=== PATIENT | female | born 1990 ===

== ENCOUNTER 2023-04-13 19:09 | Emergency (ER) | payer OTHER, SELFPAY ==
--- NOTE | ~2023-04-13 | CT_ITS ---
EXAMINATION: CT ABDOMEN AND PELVIS WITH CONTRAST CLINICAL INFORMATION: Diarrhea, fever, abdominal pain COMPARISON: None available. TECHNIQUE: Multidetector volumetric images were obtained from the superior aspect of the liver through the pubic symphysis following administration 85 mL of Omnipaque 350 intravenous contrast. Sagittal and coronal reformatted images were obtained on the technologist's workstation. Oral contrast: No This CT examination was performed using dose optimization techniques as appropriate, variously including the following: *Automated exposure control *Adjustment of mA and/or kV according to patient size (this includes techniques or standardized protocols for targeted exams where dose is matched to indication/reason for exam; i.e. extremities or head) *Use of iterative reconstruction technique DLP: 750 mGy-cm FINDINGS: LUNG BASES: There is an area of coarse calcification and increased soft tissue density in the subareolar region of the left breast. Correlate with physical exam. The visualized lung bases are unremarkable. LIVER, GALLBLADDER, AND BILIARY TREE: The liver is enlarged measuring about 19 cm in greatest length. Difficult to trial judge attenuation after IV contrast. No focal hepatic lesion or biliary ductal dilatation is present. The gallbladder is unremarkable with no evidence of radiopaque gallstones, gallbladder wall thickening, or obvious pericholecystic inflammatory changes. PANCREAS: Unremarkable. SPLEEN: Spleen is enlarged at 13.8 cm. There is a tiny subcentimeter cysts seen posteriorly (8:41). A small splenule is present ADRENAL GLANDS: Unremarkable. KIDNEYS AND URETERS: The kidneys are normal in size, shape, and attenuation. No hydronephrosis, hydroureter, or calculi seen. No perinephric stranding. BLADDER: Unremarkable. GASTROINTESTINAL TRACT: The small and large bowel are unremarkable aside from colonic diverticula without diverticulitis. The appendix is unremarkable. ABDOMINAL WALL: No significant hernia is appreciated. LYMPH NODES: Multiple small lymph nodes are present in the retroperitoneum as well as the mesentery, the largest is a right paracaval node measuring 3.0 x 1.6 x 0.6 cm (3:47 and 7:44) VASCULAR: Unremarkable. PELVIC VISCERA: Retroverted uterus is present. An abnormal adnexal masses not seen. In the region of the cervix, there is a hypoattenuating area which could be related to nabothian cysts. OSSEOUS STRUCTURES: Unremarkable. CT/CT abdomen pelvis w IV con IMPRESSION: 1. Hepatosplenomegaly. 2. Colonic diverticulosis without diverticulitis. 3. Small retroperitoneal and mesenteric lymph nodes. 4. Other incidental findings as described above. Fleischner guidelines were followed.
[2023-04-13 19:57] VITALS: BP 115/69; PULSE 74; RESP 18; TEMP 36.7; O2SAT 97; BMI 29.5
--- NOTE | 2023-04-13 19:57 | ED_ITS ---
HPI - Nausea/Vomiting/Diarrhea General Chief complaint: Nausea/Vomiting/Diarrhea Stated complaint: Fever N/V/D Time Seen by Provider: 04/13/23 23:21 Source: patient Mode of arrival: ambulatory Limitations: no limitations History of Present Illness HPI Narrative: 33 yo female with no PMH here with c/o 7 days of abdominal pain n/v/d it all started after her menses. She had subjective fevers as well. She has never had a bad menses in the past and no prior endometriosis. Her sister has endometriosis and hx of colitis in the past. Patient denies travel, sick contacts, food exposures or antibiotic use in 4 weeks. The patient reports she has never had this before her last stool was nonbloody before arrival. She has never had abdominal surgery before. MD elicited complaint: nausea, vomiting, diarrhea and abdominal pain Onset (ago): day(s) (7) Description of vomiting: food contents and watery Description of diarrhea: watery Associated nausea: Yes Associated abdominal pain: Yes Location of pain: diffuse Radiation: diffuse Pain consistency: intermittent Severity: moderate Quality: cramping Exacerbating factors: eating Relieving factors: none Associated symptoms: fever/chills, loss of appetite, malaise and nausea/vomiting Related Data Previous Rx's Medication Instructions Recorded ondansetron 4 mg disintegrating 4 mg PO Q8H PRN nausea and 04/14/23 tablet vomiting #20 tabs Allergies Allergy/AdvReac Type Severity Reaction Status Date / Time No Known Allergies Allergy Verified 04/13/23 20:00 Review of Systems Review of Systems: Constitutional : No Weight loss, pos Fever, No Chills ENT/Mouth : No sore throat, No Rhinorrhea Eyes: No Swelling, No Redness Cardiovascular : No Chest Pain, No SOB, NoEdema Respiratory : No Cough, No Sputum, No Wheezing Gastrointestinal : Positive Nausea, Positive Vomiting, positive Diarrhea, positive abdominal Pain, No Hematochezia, No Melena Genitourinary : No Dysuria, No Urinary Frequency, No Hematuria, No Urgency Musculoskeletal : No joint pain, No Myalgias, No Joint Swelling Skin : No Skin Lesions, No rash Neuro : No Weakness, No Numbness, No Dizziness, No Headache Psych : No Anxiety/Panic, No Depression All other systems reviewed and are negative. Gastrointestinal: Gastrointestinal: Reports nausea PMFSH Past Medical History Attestation statement: The following information was validated with the patient. Medical History No pertinent past medical history Social History Social History (Updated 04/14/23 @ 00:33 by Dalila Jackson DO) Patient Tobacco Use Status: Never used Tobacco Advance Directives: No Advance Directives Information Provided: No Physical Exam Vital Signs: Vital Signs: Last Vital Signs Temp 98.1 F 04/13/23 19:57 Pulse 74 04/13/23 19:57 Resp 18 04/13/23 19:57 BP 115/69 04/13/23 19:57 Pulse Ox 97 04/13/23 19:57 O2 Del Method Room Air 04/13/23 19:57 BMI result Body Mass Index 29.5 Appearance: Alert. Oriented X3. No acute distress. Eyes: Pupils equal, round and reactive to light. ENT: Pharynx normal. Neck: Normal inspection. Neck supple. CVS: Normal heart rate and rhythm. Pulses normal. Respiratory: No respiratory distress. Breath sounds normal. Abdomen: Soft and mild diffuse ttp Skin: Skin warm and dry. Normal skin color. Normal skin turgor. Extremities: No lower extremity edema. No calf ttp Neuro: Oriented X 3. No motor deficit. No sensory deficit. Course Course Course Narrative: RME - 33 yo female presents to the ER for evaluation of watery diarrhea, nausea, vomiting, diffuse abdominal pain, and fevers for the last 1 week. No known sick contacts. Reports dizziness and lightheadedness for the last 2-3 days as well. Plan: labs, UA, stool studies Medications Administered Discontinued Medications Generic Name Dose Route Start Last Admin Trade Name Sebastian PRN Reason Stop Dose Admin Famotidine 20 mg 04/13/23 23:46 04/14/23 00:09 Famotidine/Pf 20 Mg/2 Ml Vial IVPUSH 04/13/23 23:47 20 mg ONCE ONE Administration Lactated Ringer's 1,000 mls @ 999 mls/hr 04/13/23 23:45 04/14/23 01:27 Lr IV 04/14/23 00:45 Infused .Q1H1M NHI Infusion Iohexol 85 ml 04/14/23 00:36 04/14/23 00:37 Iohexol 350 Mg/Ml 100 Ml Infus..Btl IV 04/14/23 00:37 85 ml ONCE ONE Administration Ketorolac Tromethamine 15 mg 04/13/23 23:46 04/14/23 00:09 Ketorolac Tromethamine 15 Mg/Ml Vial IVPUSH 04/13/23 23:47 15 mg ONCE ONE Administration Ondansetron HCl 4 mg 04/13/23 23:46 04/14/23 00:09 Ondansetron Hcl 4 Mg/2 Ml Vial IVPUSH 04/13/23 23:47 4 mg ONCE ONE Administration Medical Decision Making Medical Decision Making MDM Narrative: 33 yo female with no sig PMH here with c/o n/v/d and abdominal pain at this time has had fevers cramping but no risk factors for colitis - she will need basic labs, UA, CT scan for colitis/diverticulitis. has fam hx of endometriosis but will need to see OBGYN for this. IVF, IV medications ordered. Differential Diagnosis Differential Diagnoses: The differential diagnosis associated with the presentation includes colitis, viral syndrome, UTI, diverticulitis Admission/Observation Consideration of admission/observation: Escalation of care including admission/observation considered tolerating PO stable for outpatient management Lab Data [facility] Lab Attestation statement: I reviewed the patient's lab results. 04/13/23 21:04 04/13/23 21:03 Labs: Lab Results 04/13/23 04/13/23 04/13/23 Range/Units 21:03 21:03 21:04 WBC 6.8 (4.8-10.8) X10*3/uL RBC 4.74 (4.20-5.50) X10*6/uL Hgb 14.0 (12.0-16.0) g/dl Hct 40.9 (37.0-47.0) % MCV 86.3 (80.0-98.0) fL MCH 29.5 (27.0-33.0) pg MCHC 34.2 (31.0-35.0) g/dl RDW 12.0 (11.0-16.0) % Plt Count 332 (160-400) X10*3/uL MPV 9.7 (9.4-12.3) fL Immature Gran % (Auto) 0.3 (0.0-0.4) % Neut % (Auto) 57.2 (45-73) % Lymph % (Auto) 27.4 (20-40) % [place] % (Auto) 13.4 H (2-11) % Eos % (Auto) 1.3 (0-4) % Baso % (Auto) 0.4 (0-2) % Lymph # (Auto) 1.9 (1.2-4.9) X10*3/uL [place] # (Auto) 0.9 (0.1-1.2) X10*3/uL Eos # (Auto) 0.1 (0.0-0.4) X10*3/uL Baso # (Auto) 0.0 (0.0-0.2) X10*3/uL Abs Immat Gran (auto) 0.02 (0.00-0.03) X10*3/uL Absolute Neuts (auto) 3.9 (2.0-8.3) x10*3/uL Absolute Nucleated RBC 0.000 (0.0-0.012) X10*3/uL Nucleated RBC % (auto) 0.0 (0.0-0.2) /100WBC Sodium 142 (135-145) mmol/L Potassium 3.5 (3.3-5.1) mmol/L Chloride 104 (96-108) mmol/L Carbon Dioxide 29 (22-29) mmol/L Anion Gap 13 (12-20) BUN 11 (9-16) mg/dL Creatinine 0.63 (0.5-1.4) mg/dL Estim Creat Clear Calc 151.0 Estimated GFR > 60 Random Glucose 95 (60-115) mg/dL Calcium 9.1 (8.4-10.2) mg/dL Magnesium 2.1 (1.6-2.6) mg/dL Total Bilirubin 0.3 (0.0-1.0) mg/dL Direct Bilirubin 0.2 (0.0-0.5) mg/dL AST 70 H (5-31) U/L ALT 83 H (0-31) U/L Alkaline Phosphatase 57 (39-117) U/L Total Protein 6.8 (6.5-8.0) g/dL Albumin 4.0 (3.5-5.0) g/dL Urine Color Dark Yellow Urine Appearance Cloudy Urine pH 6.0 (5.0-9.0) Ur Specific [place] >= 1.030 H (1.005-1.025) Urine Protein 30 (1+) H (Neg-Trace) mg/dL Urine Glucose (UA) Negative (Negative) mg/dL Urine Ketones Trace (Negative) mg/dL Urine Blood Negative (Negative) Urine Nitrite Negative (Negative) Ur Leukocyte Esterase Trace H (Negative) Urine RBC 6-10 H (0-2) /HPF Urine WBC 0-5 (0-5) /HPF Ur Squamous Epith Cells >20 (0-2) /HPF Urine Bacteria 2+ (None Seen) Hyaline Casts 3-5 (0-2) /LPF Urine Test (NEGATIVE) COVID-19 (LADARIUS) (Negative) COVID-19 Clin Com Monoscreen (Negative) Influenza Type A (GLEN) (Negative) Influenza Type B (GLEN) (Negative) Influenza A & B Note 04/13/23 04/13/23 04/13/23 Range/Units 21:04 21:04 21:04 WBC (4.8-10.8) X10*3/uL RBC (4.20-5.50) X10*6/uL Hgb (12.0-16.0) g/dl Hct (37.0-47.0) % MCV (80.0-98.0) fL MCH (27.0-33.0) pg MCHC (31.0-35.0) g/dl RDW (11.0-16.0) % Plt Count (160-400) X10*3/uL MPV (9.4-12.3) fL Immature Gran % (Auto) (0.0-0.4) % Neut % (Auto) (45-73) % Lymph % (Auto) (20-40) % [place] % (Auto) (2-11) % Eos % (Auto) (0-4) % Baso % (Auto) (0-2) % Lymph # (Auto) (1.2-4.9) X10*3/uL [place] # (Auto) (0.1-1.2) X10*3/uL Eos # (Auto) (0.0-0.4) X10*3/uL Baso # (Auto) (0.0-0.2) X10*3/uL Abs Immat Gran (auto) (0.00-0.03) X10*3/uL Absolute Neuts (auto) (2.0-8.3) x10*3/uL Absolute Nucleated RBC (0.0-0.012) X10*3/uL Nucleated RBC % (auto) (0.0-0.2) /100WBC Sodium (135-145) mmol/L Potassium (3.3-5.1) mmol/L Chloride (96-108) mmol/L Carbon Dioxide (22-29) mmol/L Anion Gap (12-20) BUN (9-16) mg/dL Creatinine (0.5-1.4) mg/dL Estim Creat Clear Calc Estimated GFR Random Glucose (60-115) mg/dL Calcium (8.4-10.2) mg/dL Magnesium (1.6-2.6) mg/dL Total Bilirubin (0.0-1.0) mg/dL Direct Bilirubin (0.0-0.5) mg/dL AST (5-31) U/L ALT (0-31) U/L Alkaline Phosphatase (39-117) U/L Total Protein (6.5-8.0) g/dL Albumin (3.5-5.0) g/dL Urine Color Urine Appearance Urine pH (5.0-9.0) Ur Specific [place] (1.005-1.025) Urine Protein (Neg-Trace) mg/dL Urine Glucose (UA) (Negative) mg/dL Urine Ketones (Negative) mg/dL Urine Blood (Negative) Urine Nitrite (Negative) Ur Leukocyte Esterase (Negative) Urine RBC (0-2) /HPF Urine WBC (0-5) /HPF Ur Squamous Epith Cells (0-2) /HPF Urine Bacteria (None Seen) Hyaline Casts (0-2) /LPF Urine Test NEGATIVE (NEGATIVE) COVID-19 (LADARIUS) Negative (Negative) COVID-19 Clin Com See Note Monoscreen (Negative) Influenza Type A (GLEN) Negative (Negative) Influenza Type B (GLEN) Negative (Negative) Influenza A & B Note See Note 04/14/23 Range/Units 01:20 WBC (4.8-10.8) X10*3/uL RBC (4.20-5.50) X10*6/uL Hgb (12.0-16.0) g/dl Hct (37.0-47.0) % MCV (80.0-98.0) fL MCH (27.0-33.0) pg MCHC (31.0-35.0) g/dl RDW (11.0-16.0) % Plt Count (160-400) X10*3/uL MPV (9.4-12.3) fL Immature Gran % (Auto) (0.0-0.4) % Neut % (Auto) (45-73) % Lymph % (Auto) (20-40) % [place] % (Auto) (2-11) % Eos % (Auto) (0-4) % Baso % (Auto) (0-2) % Lymph # (Auto) (1.2-4.9) X10*3/uL [place] # (Auto) (0.1-1.2) X10*3/uL Eos # (Auto) (0.0-0.4) X10*3/uL Baso # (Auto) (0.0-0.2) X10*3/uL Abs Immat Gran (auto) (0.00-0.03) X10*3/uL Absolute Neuts (auto) (2.0-8.3) x10*3/uL Absolute Nucleated RBC (0.0-0.012) X10*3/uL Nucleated RBC % (auto) (0.0-0.2) /100WBC Sodium (135-145) mmol/L Potassium (3.3-5.1) mmol/L Chloride (96-108) mmol/L Carbon Dioxide (22-29) mmol/L Anion Gap (12-20) BUN (9-16) mg/dL Creatinine (0.5-1.4) mg/dL Estim Creat Clear Calc Estimated GFR Random Glucose (60-115) mg/dL Calcium (8.4-10.2) mg/dL Magnesium (1.6-2.6) mg/dL Total Bilirubin (0.0-1.0) mg/dL Direct Bilirubin (0.0-0.5) mg/dL AST (5-31) U/L ALT (0-31) U/L Alkaline Phosphatase (39-117) U/L Total Protein (6.5-8.0) g/dL Albumin (3.5-5.0) g/dL Urine Color Urine Appearance Urine pH (5.0-9.0) Ur Specific [place] (1.005-1.025) Urine Protein (Neg-Trace) mg/dL Urine Glucose (UA) (Negative) mg/dL Urine Ketones (Negative) mg/dL Urine Blood (Negative) Urine Nitrite (Negative) Ur Leukocyte Esterase (Negative) Urine RBC (0-2) /HPF Urine WBC (0-5) /HPF Ur Squamous Epith Cells (0-2) /HPF Urine Bacteria (None Seen) Hyaline Casts (0-2) /LPF Urine Test (NEGATIVE) COVID-19 (LADARIUS) (Negative) COVID-19 Clin Com Monoscreen Negative (Negative) Influenza Type A (GLEN) (Negative) Influenza Type B (GLEN) (Negative) Influenza A & B Note Independent Interpretation I performed an independent interpretation of an: CT Scan (no acute infection) Radiology Impression Discussion of test interpretation with radiology: I have reviewed the radiologist's reading. Prescription Management I considered prescription management with: Other (zofran) Discharge Plan Discharge Clinical Impression: Hepatosplenomegaly, LAD (lymphadenopathy), retroperitoneal Patient Disposition: Home, Self-Care Instructions: Lymphadenopathy (ED) Additional Instructions: mild bump in liver enzymes nonspecific enlarged lymph nodes could be reactive and mildly enlarged liver and spleen on CT scan. avoid alcohol and aspirin call your doctor to follow up CT scan results and repeat blood work in 2 days return for worsening fevers, pain, vomiting, worsening diarrhea or any other concerns, stay hydrated. Prescriptions: New ondansetron 4 mg tablet,disintegrating 4 mg PO Q8H PRN (Reason: nausea and vomiting) Qty: 20 0RF Interventions: ED Discharge Assessment Last Done: 04/14/23 01:26 Discharge Date/Time: 04/14/23 01:27
[2023-04-13 21:09] LABS: MANUAL DIFF FLAG NO
[2023-04-13 21:10] LABS: Basophils Percent Auto 0.4 % (0-2); Eosinophils Absolute Auto 0.1 X10*3/uL (0.0-0.4); Eosinophils Percent Auto 1.3 % (0-4); Hematocrit 40.9 % (37.0-47.0); Imm Gran Abs Auto 0.02 X10*3/uL (0.00-0.03); Imm Gran Pct Auto 0.3 % (0.0-0.4); Lymphocytes Absolute Auto 1.9 X10*3/uL (1.2-4.9); Lymphocytes Percent Auto 27.4 % (20-40); Mean Corpuscular HGB Conc 34.2 g/dl (31.0-35.0); Mean Corpuscular Hemoglobin 29.5 pg (27.0-33.0); Mean Corpuscular Volume 86.3 fL (80.0-98.0); Mean Platelet Volume 9.7 fL (9.4-12.3); Monocytes Absolute Auto 0.9 X10*3/uL (0.1-1.2); Monocytes Percent Auto 13.4 % (2-11); Neutrophils Absolute Auto 3.9 x10*3/uL (2.0-8.3); Neutrophils Percent Auto 57.2 % (45-73); Platelet Count 332 X10*3/uL (160-400); Red Blood Count 4.74 X10*6/uL (4.20-5.50); White Blood Count 6.8 X10*3/uL (4.8-10.8)
[2023-04-13 21:13] LABS: Appearance Urine Cloudy; Color Urine Dark Yellow; Glucose Urine UA Negative (Negative); Leukocyte Esterase Urine Trace (Negative); Nitrite Urine Negative (Negative); Specific Gravity - Urine >= 1.030 (1.005-1.025); UMIC TRIGGER UACC YES; Urine Blood Negative (Negative); Urine Ketones Trace mg/dL (Negative); Urine Protein 30 (1+) mg/dL (Neg-Trace)
[2023-04-13 21:14] LABS: UPreg QC Valid YES; Urine Pregnancy NEGATIVE (NEGATIVE)
[2023-04-13 21:20] LABS: Bacteria Urine 2+ (None Seen); Squamous Epithelial Cell Urine >20 /HPF (0-2); WBC Urine 0-5 /HPF (0-5)
[2023-04-13 21:23] LABS: COVID-19 Test Negative (Negative); IDNOW Serial# BCCEAD1C
[2023-04-13 21:24] LABS: IDNOW Serial# BCCEAD1C; Influenza A Negative (Negative); Influenza B2 Negative (Negative)
[2023-04-13 21:28] LABS: Alanine Aminotransferase 83 U/L (0-31); Alkaline Phosphatase 57 U/L (39-117); Anion Gap 13 (12-20); Aspartate Amino Transferase 70 U/L (5-31); Bilirubin Direct 0.2 mg/dL (0.0-0.5); Bilirubin Total 0.3 mg/dL (0.0-1.0); Blood Urea Nitrogen 11 mg/dL (9-16); Calcium 9.1 mg/dL (8.4-10.2); Carbon Dioxide 29 mmol/L (22-29); Chloride 104 mmol/L (96-108); Estimated Glomerular Filt Rate > 60; Glucose Random 95 mg/dL (60-115); Magnesium 2.1 mg/dL (1.6-2.6); Potassium 3.5 mmol/L (3.3-5.1); Sodium 142 mmol/L (135-145); Total Protein 6.8 g/dL (6.5-8.0)
--- OUTSIDE RECORDS SUMMARY | 2023-04-13 23:33 | XMS_ITS | Continuity of Care Document ---
Author Name Unknown Organization [facility] ter Address [address] [place] [address]- Care Team Providers Care Heel Brusher Name Role Phone Monica Grant MD Primary Care Physician [place] [facility] [place] - 09/25/[address] [address] Attending Physician: David Pierre DO Admitting Physician: David Pierre DO Allergies, Adverse Reactions, Alerts No Known Allergies Immunizations Given and Recorded Vaccine Date Status Refusal Reason Human Papillomavirus Vaccine 1 12/24/15 Given Human Papillomavirus Vaccine 2 10/25/15 Given 1Result Comment: [12/24/2015] Refused to wait 15min after injection to ensure no dizziness or other SE. States I'm always fine . No issues w/first. 2Result Comment: [10/25/2015] Refused to wait 15min post-injection, warnings reviewed. Medications Albuterol 0 Refills, Maintenance Start Date: 12/17/11 Status: Ordered Ambien 10 mg oral tablet 1 tablet = 10 mg, By Mouth, Daily at bedtime, PRN for sleep, 0 Refills, Maintenance, 01/06/17 9:02:59, Tablet Start Date: 01/06/17 Status: Ordered Flonase 50 mcg/inh nasal spray 1 sprays, Nares, Both, Daily in AM, # 1 each, 1 Refills, Maintenance, 03/12/17 17:22:12, [place], 1 sprays Nares, Both Daily in AM Start Date: 03/12/17 Status: Ordered Flovent HFA Inhalation, 2 times a day, 0 Refills, Maintenance, 06/14/14 12:45:19 Start Date: 06/14/14 Status: Ordered Prozac Capsule By Mouth, Daily, Maintenance, 10/25/15 14:25:35 Start Date: 10/25/15 Status: Ordered Problem List Condition Effective Dates Status Health Status Inform ant Abnormal cervical Papanicola ou smear(Confirmed) 1, 2, 3, 4, 5 11/2011 Active Asthma(Confirmed) Active Back pain(Confirmed) Active BRCA2 deleterious mutation positive(Confirmed) Active Breast lump present(Confirmed) Active Chronic depression(Confirmed) Active Migraines(Confirmed) Active PTSD - Post-traumatic stress disorder(Confirmed) Active Uses oral contraceptives(Confirmed) 06/2012 Active 1pap neg Oct 2015. no HPV done. pap neg/hpv neg. repeat pap/cotesting 1 yr. pap: ASCUS colpo c/w LGSIL, pap LGSIL, Bx negative 5ASCUS + HPV Social History Social History Type Response Smoking Status Former smoker, quit more than 30 days ago entered on: 07/14/18 Sex Female
--- OUTSIDE RECORDS SUMMARY | 2023-04-13 23:33 | XMS_ITS | Continuity of Care Document ---
Author Name Unknown Organization [facility] Address [address] [place] [address]- Care Team Providers Care Clinical Audiologist Name Role Phone Monica Grant MD Primary Care Physician Encounter [facility] Date(s): 01/19/22 - 02/18/22 [facility] [address] [place] [id number] Allergies, Adverse Reactions, Alerts No Known Allergies [...] Refills, Maintenance Start Date: 12/17/11 Status: Ordered Flonase 50 mcg/inh nasal spray 1 sprays, Nares, Both, Daily in AM, # 1 each, 1 Refills, Maintenance, 03/12/17 17:22:12, [place], 1 sprays Nares, Both Daily in AM [...] present(Confirmed) Active Chronic depression(Confirmed) Active Migraines(Confirmed) Active Obese class I(Confirmed) Active PTSD - Post-traumatic stress disorder(Confirmed) Active [...]
--- OUTSIDE RECORDS SUMMARY | 2023-04-13 23:33 | XMS_ITS | Continuity of Care Document ---
Author Name Unknown Organization [facility] Address [address] [facility] [place] [address]- Care Team Providers Care Clinical Case Manager Name Role Phone Rudy POWELL, Monica Primary Care Physician Encounter [facility] [place] Date(s): 08/14/21 - 09/13/21 [facility] [address] [place] [place] [address]- Attending Physician: Sugey Wade Admitting Physician: AdmtrSugey Referring Physician: Admtr, Ar8 Allergies, Adverse Reactions, Alerts Substance Reaction Severity Status NKA Active Immunizations Given and Recorded Vaccine Date Status [...] 1 each, 1 Refills, Maintenance, 03/12/17 17:22:12, [place], 1 sprays Nares, Both Daily in AM [...]
--- OUTSIDE RECORDS SUMMARY | 2023-04-13 23:33 | XMS_ITS | Continuity of Care Document ---
Author Name Unknown Organization [facility] Address [address] [place] [address]- Care Team Providers Care Freight Agent Name Role Phone Rudy POWELL, Monica Primary Care Physician [phone] [place] [facility] [place]11/20 - 05/11/20 [facility] [address] [place] [address] [facility] Allergies, Adverse Reactions, Alerts Substance Reaction Severity [...] 1 each, 1 Refills, Maintenance, 03/12/17 17:22:12, [place], 1 sprays Nares, Both Daily in AM [...]
--- OUTSIDE RECORDS SUMMARY | 2023-04-13 23:33 | XMS_ITS | Continuity of Care Document ---
Author Name Unknown Organization [facility] Address [address] [place] [address]- Care Team Providers Care Computer Technical Support Specialist Name Role Phone Monica Grant MD Primary Care Physician [place] [facility] [place] Date(s): 11/10/19 - 11/20/19 [facility] [address] [facility] [place] [address]- [facility] Attending Physician: Sugey Wade Admitting Physician: Sugey Wade Referring Physician: Admtr ArGregory Allergies, Adverse Reactions, Alerts Substance Reaction Severity [...] 1 each, 1 Refills, Maintenance, 03/12/17 17:22:12, [place], 1 sprays Nares, Both Daily in AM Start Date: 03/12/17 Status: Ordered Flovent HFA Inhalation, 2 times a day, 0 Refills, Maintenance, 10/09/14 12:45:19 Start Date: 06/14/14 Status: Ordered Prozac [...]
--- OUTSIDE RECORDS SUMMARY | 2023-04-13 23:33 | XMS_ITS | Continuity of Care Document ---
Author Name Unknown Organization [facility] jazmyn Address [address] [place] [address] [address] [place] [address]- Care Team Providers Care Back Shoe Cutter Name Role Phone Monica Grant MD Primary Care Physician En[place] [facility] [place] Date(s): 01/29/22 - 04/02/22 [facility] [address] [place], [place] [address] Attending Physician: Caryn POWELL, Eduin Mata Referring Physician: Monica Grant MD Allergies, Adverse Reactions, Alerts No Known Allergies [...] 1 each, 1 Refills, Maintenance, 03/12/17 17:22:12, [place], 1 sprays Nares, Both Daily in AM [...]
--- OUTSIDE RECORDS SUMMARY | 2023-04-13 23:33 | XMS_ITS | Continuity of Care Document ---
Author Name Unknown Organization [facility] Address [address] [place] [address]- Care Team Providers Care Composite Layup Worker Name Role Phone Monica Grant MD Primary Care Physician [place] [facility] [place]): [place]09/20 [facility] [address] [place] [address] [facility] Attending Physician: Sugey Wade Admitting Physician: Sugey Wade Referring Physician: AdmtrSugey Allergies, Adverse Reactions, Alerts Substance Reaction Severity [...] 1 each, 1 Refills, Maintenance, 03/12/17 17:22:12, [place], 1 sprays Nares, Both Daily in AM [...]
--- OUTSIDE RECORDS SUMMARY | 2023-04-13 23:33 | XMS_ITS | Continuity of Care Document ---
Author Name Unknown Organization [facility] Address [address] [place] [address]- Care Team Providers Care Operator Weapon Locating Radar Name Role Phone Monica Grant MD Primary Care Physician [phone] Encounter [facility] [id number] Date(s): 10/29/21 - 11/28/21 [facility] [address] [place] [id number] Attending Physician: Sugey Wade Admitting Physician: Sugey Wade Referring Physician: AdmtrSugey Allergies, Adverse Reactions, Alerts No Known Allergies [...] 1 each, 1 Refills, Maintenance, 03/12/17 17:22:12, [place], 1 sprays Nares, Both Daily in AM [...]
--- OUTSIDE RECORDS SUMMARY | 2023-04-13 23:33 | XMS_ITS | Continuity of Care Document ---
Author Name Unknown Organization [facility] jazmyn Address [address] [place] [address] [address] [place] [address]- Care Team Providers Care Head Stock Transfer Clerk Name Role Phone Monica Grant MD Primary Care Physician [place] [facility] [place] 03/03/22 - 04/02/22 [facility] [address] [place], [place] [address] Attending Physician: Sugey Wade Admitting Physician: AdmtrSugey Referring Physician: Admtr, Ar8 Allergies, Adverse Reactions, Alerts No Known Allergies [...] 1 each, 1 Refills, Maintenance, 03/12/17 17:22:12, [place], 1 sprays Nares, Both Daily in AM [...]
--- OUTSIDE RECORDS SUMMARY | 2023-04-13 23:34 | XMS_ITS | Continuity of Care Document ---
Author Name Unknown Organization [facility] Address [address] [place] [address]- Care Team Providers Care Manager Winter Name Role Phone Rudy POWELL, Monica Primary Care Physician [phone] [facility] [place] Date(s): 03/13/21 - 04/12/21 [facility] [address] [place] [address]- Attending Physician: AdmSugey savage Admitting Physician: AdmtrSugey Referring Physician: Admtr, Ar8 [...] 1 each, 1 Refills, Maintenance, 03/12/17 17:22:12, [place], 1 sprays Nares, Both Daily in AM Start Date: 03/12/17 Status: Ordered Flovent HFA Inhalation, 2 times a day, 0 Refills, Maintenance, 06/14/14 12:45:19 Start Date: 10/9/14 Status: Ordered Prozac Capsule By Mouth, Daily, [...]
--- OUTSIDE RECORDS SUMMARY | 2023-04-13 23:34 | XMS_ITS | Continuity of Care Document ---
Author Name Unknown Organization [facility] Address [address] [place] [address]- Care Team Providers Care Air Conditioner Installer Helper Name Role Phone Monica Grant MD Primary Care Physician [phone] [place] [facility] [place] 07/11/21 [facility] [address] [place] [address]- Attending Physician: David Pierre DO Admitting Physician: David Pierre DO Referring Physician: Monica Grant MD Allergies, Adverse Reactions, Alerts Substance Reaction Severity [...] 1 each, 1 Refills, Maintenance, 03/12/17 17:22:12, [place], 1 sprays Nares, Both Daily in AM [...]
--- OUTSIDE RECORDS SUMMARY | 2023-04-13 23:34 | XMS_ITS | Continuity of Care Document ---
Author Name Unknown Organization [facility] jazmyn Address [address] [place] [address] [address] [place] [address]- Care Team Providers Care Procurement Accountant Name Role Phone Monica Grant MD Primary Care Physician [phone] Encounter [facility] [place] Date(s): 06/19/21 - 08/28/21 [facility] [address] [place], [place] [address] Attending Physician: Uriel TERRY, Bernice Robertson Referring Physician: Monica Grant MD Allergies, Adverse [...] 1 each, 1 Refills, Maintenance, 03/12/17 17:22:12, [place], 1 sprays Nares, Both Daily in AM [...]
--- OUTSIDE RECORDS SUMMARY | 2023-04-13 23:34 | XMS_ITS | Continuity of Care Document ---
Author Name Unknown Organization [facility] ter Address [address] [place] [address]- Care Team Providers Care Rn Dialysis Name Role Phone Monica Grant MD Primary Care Physician [place] [facility] [place] Date(s[place] 11/15/19 - 12/30/[address] [address]- [facility] Attending Physician: Carmelo Silva Admitting Physician: Carmelo Silva Referring Physician: Carmelo Silva Allergies, Adverse Reactions, Alerts Substance Reaction Severity [...] 1 each, 1 Refills, Maintenance, 03/12/17 17:22:12, [place], 1 sprays Nares, Both Daily in AM [...]
--- OUTSIDE RECORDS SUMMARY | 2023-04-13 23:34 | XMS_ITS | Continuity of Care Document ---
Author Name Unknown Organization [facility] jazmyn Address [address] [place] [address] [address] [place] [address]- Care Team Providers Care Editor News Name Role Phone Monica Grant MD Primary Care Physician [place] [facility] [place]21 - 09/04/21 [facility] [address] [place], [place] [address] Attending Physician: Uriel TERRY, Bernice Robertson Referring [...] 1 each, 1 Refills, Maintenance, 03/12/17 17:22:12, [place], 1 sprays Nares, Both Daily in AM [...]
--- OUTSIDE RECORDS SUMMARY | 2023-04-13 23:34 | XMS_ITS | Continuity of Care Document ---
Author Name Unknown Organization [facility] jazmyn Address [address] [place] [address] [address] [place] [address]- Care Team Providers Care Photographic Plate Maker Name Role Phone Monica Grant MD Primary Care Physician Encounter [facility] [place] Date(s): 06/19/21 - 09/25/21 [facility] [address] [place], [place] [address] Attending Physician: Uriel TERRY, Bernice Robertson Referring [...] 1 each, 1 Refills, Maintenance, 03/12/17 17:22:12, [place], 1 sprays Nares, Both Daily in AM [...]
--- OUTSIDE RECORDS SUMMARY | 2023-04-13 23:34 | XMS_ITS | Continuity of Care Document ---
Author Name Unknown Organization [facility]astic [facility] jazmyn Address [address] [place] [address] [address] [place] [address]- Care Team Providers Care Polysom Tech Name Role Phone Monica Grant MD Primary Care Physician En[place] [facility] [place] Date(s): 07/17/21 - 10/25/21 [facility] [address] [place], [place] [address] Attending Physician: Caryn POWELL, Eduin Mata Referring [...] 1 each, 1 Refills, Maintenance, 03/12/17 17:22:12, [place], 1 sprays Nares, Both Daily in AM [...]
--- OUTSIDE RECORDS SUMMARY | 2023-04-13 23:34 | XMS_ITS | Continuity of Care Document ---
Author Name Unknown Organization [facility] Address [address] [place] [address]- Care Team Providers Care J2Ee Android Developer Name Role Phone Monica Grant MD Primary Care Physician [place] [facility] [place]19 - 12/10/19 [facility] [address] [place] [place] [address]- [facility] Attending Physician: David Pierre DO Admitting Physician: [...] 1 each, 1 Refills, Maintenance, 03/12/17 17:22:12, [place], 1 sprays Nares, Both Daily in AM [...]
--- OUTSIDE RECORDS SUMMARY | 2023-04-13 23:34 | XMS_ITS | Continuity of Care Document ---
Author Name Unknown Organization [facility]astic [facility] jazmyn Address [address] [place] [address] [address] [place] [address]- Care Team Providers Care Assembler Radio And Electrical Name Role Phone Monica Grant MD Primary Care Physician [facility] [place] Date(s): 10/30/21 - 11/29/21 [facility] [address] [place], [place] [address] Attending Physician: Sugey Wade Admitting Physician: AdmtrSugey [...] 1 each, 1 Refills, Maintenance, 03/12/17 17:22:12, [place], 1 sprays Nares, Both Daily in AM [...]
--- OUTSIDE RECORDS SUMMARY | 2023-04-13 23:34 | XMS_ITS | Continuity of Care Document ---
Author Name Unknown Organization [facility]astic Stefan jazmyn Address [address] [place] [address] [address] [place] [address]- Care Team Providers Care Box Printer Name Role Phone Rudy POWELL, Monica Primary Care Physician [phone] [place] [facility] [place] Date(s): 07/17/21 - 11/01/21 [facility] [address] [place], [place] [address] Attending Physician: Caryn POWELL, Eduin Mata Referring [...] 1 each, 1 Refills, Maintenance, 03/12/17 17:22:12, [place], 1 sprays Nares, Both Daily in AM [...]
--- OUTSIDE RECORDS SUMMARY | 2023-04-13 23:34 | XMS_ITS | Continuity of Care Document ---
Author Name Unknown Organization [facility]astic Stefan jazmyn Address [address] [place] [address] [address] [place] [address]- Care Team Providers Care Contract Loader Name Role Phone Rudy POWELL, Monica Primary Care Physician En[facility] [place] Date(s): 10/17/21 - 11/16/21 [facility] [address] [place], [place] [address] Attending Physician: Sugey Wade Admitting Physician: [...] 1 each, 1 Refills, Maintenance, 03/12/17 17:22:12, [place], 1 sprays Nares, Both Daily in AM [...]
--- OUTSIDE RECORDS SUMMARY | 2023-04-13 23:34 | XMS_ITS | Continuity of Care Document ---
Author Name Unknown Organization [facility] Address [address] [place] [address]- Care Team Providers Care Gaming Associate Name Role Phone Rudy POWELL, Monica Primary Care Physician En[place] [facility] [place] Date(s): 07/11/21 - 08/10/21 [facility] [address] [place] [address]- Allergies, Adverse Reactions, Alerts Substance Reaction Severity [...] 1 each, 1 Refills, Maintenance, 03/12/17 17:22:12, [place], 1 sprays Nares, Both Daily in AM [...]
--- OUTSIDE RECORDS SUMMARY | 2023-04-13 23:34 | XMS_ITS | Continuity of Care Document ---
Author Name Unknown Organization [facility]astic [facility] jazmyn Address [address] [place] [address] [address] [place] [address]- Care Team Providers Care Manager Progressive Care Name Role Phone Monica Grant MD Primary Care Physician [place] [facility] [place] Date(s): 07/17/21 - 09/27/21 [facility] [address] [place] [address]- Attending Physician: Caryn POWELL, Eduin Mata Referring [...] 1 each, 1 Refills, Maintenance, 03/12/17 17:22:12, [place], 1 sprays Nares, Both Daily in AM [...]
--- OUTSIDE RECORDS SUMMARY | 2023-04-13 23:34 | XMS_ITS | Continuity of Care Document ---
Author Name Unknown Organization [facility] Address [address] [place] [address]- Care Team Providers Care Copier Operator Name Role Phone Monica Grant MD Primary Care Physician [place] [facility] [place]/13/23 - 03/22/23 [facility] [address] [place], [place] [address] Discharge Disposition: A-D/C Home Attending Physician: Janey Sepulveda MD Admitting Physician: Janey Sepulveda MD Referring Physician: Monica Grant MD Allergies, Adverse [...] 1 each, 1 Refills, Maintenance, 03/12/17 17:22:12, [place], 1 sprays Nares, Both Daily in AM Start Date: 03/12/17 Status: Ordered Flovent HFA Inhalation, 2 times a day, 0 Refills, Maintenance, 06/14/14 12:45:19 Start Date: 06/14/14 Status: Ordered Prozac Capsule By Mouth, Daily, Maintenance, 10/25/15 14:25:35 Start Date: 10/25/15 Status: Ordered Problem List Condition Confirmation Course Effective Dates Status H ealth Status Informant Abnormal cervical Papanicolaou smear 1, 2, 3, 4, 5 Confirmed 11/2011 Active Asthma Confirmed Active Back pain Confirmed Active BRCA2 deleterious mutation positive Confirmed Active Breast lump present Confirmed Active Chronic depression Confirmed Active Migraines Confirmed Active Obese class I Confirmed Active PTSD - Post-traumatic stress disorder Confirmed Active Uses oral contraceptives Confirmed 06/2012 Active 1pap neg Oct 2015. no HPV done. pap neg/hpv neg. repeat pap/cotesting 1 yr. pap: ASCUS colpo c/w LGSIL, pap LGSIL, Bx negative 5ASCUS + HPV Vital Signs Most recent to oldest [Reference Range]: 1 Height 174.3 cm (01/20/23 2:35 PM) Weight 98.9 kg (01/20/23 2:35 PM) Oxygen Saturation [94-100 %] 97 % (01/20/23 2:35 PM) Pulse Rate [55-90 bpm] 81 bpm (01/20/23 2:35 PM) Body Mass Index [18.5-24.99 kg/m2] 32.55 kg/m2 *>HHI* (01/20/23 2:35 PM) Blood Pressure [90-138/55-84 mm Hg] 119/ 79mm Hg (01/20/23 2:35 PM) Temperature [96.8-100.4 DegF] 98.2 DegF (01/20/23 2:35 PM) Blood pressure sites Arm, right (01/20/23 2:35 PM) Temperature Route Oral (01/20/23 2:35 PM) Dry Weight 98.9 kg (01/20/23 2:35 PM) Weight Obtained Via Standing scale (01/20/23 2:35 PM) Dry Weight Obtained Via Standing scale (01/20/23 2:35 PM) Social History Social History Type Response Smoking Status Former smoker, quit more than 30 days ago entered on: 07/14/18 Sex Female Patient Care team information Care Team Personnel Name: Arline Gomez Position: [facility] Onco RN Member Role: Primary Care Nurse Name: Sima Sanchez RN Position: [facility] Onco RN Member Role: Primary Care Nurse Name: Yaneli Portillo Position: [facility] AMB Nurse Member Role: Primary Care Nurse Name: Janey Sepulveda MD Position: [facility] Physician - Oncology Med Service: Hematology & Oncology Member Role: Admitting Physician Address: Address: [address] [place] [address] for Cancer [facility] [place] [address]- Care Team Related Persons Name: ARON FELTON Address: [place] [address]
--- OUTSIDE RECORDS SUMMARY | 2023-04-13 23:34 | XMS_ITS | Continuity of Care Document ---
Author Name Unknown Organization [facility] Address [address] [place] [address]- Care Team Providers Care Instrument Designer Name Role Phone Monica Grant MD Primary [id number] - 04/01/22 [facility] [address] [facility] [facility] [place] [address]- Attending Physician: David Pierre DO Admitting Physician: [...] 1 each, 1 Refills, Maintenance, 03/12/17 17:22:12, [place], 1 sprays Nares, Both Daily in AM [...]
--- OUTSIDE RECORDS SUMMARY | 2023-04-13 23:34 | XMS_ITS | Continuity of Care Document ---
Author Name Unknown Organization [facility] Address [address] [place] [address]- Care Team Providers Care Agricultural Engineering Technicians Name Role Phone Rudy POWELL, Monica Primary Care Physician En[place] [facility] [place](s[place] 01/13/23 - 02/12/23 [facility] Care [address] [place] [address] Attending Physician: Sugey Wade Admitting Physician: AdmSugey savage Referring Physician: Admtr ArGregory Allergies, Adverse Reactions, Alerts No Known Allergies [...] 1 each, 1 Refills, Maintenance, 03/12/17 17:22:12, [place], 1 sprays Nares, Both Daily in AM [...] Care Team Personnel Name: Arline Gomez Position: [facility] Onco RN Member Role: Primary Care Nurse Name: Sima Sanchez RN Position: [facility] Onco RN Member Role: Primary Care Nurse Name: Yaneli Portillo Position: [facility] AMB Nurse Member Role: Primary Care Nurse Care Team Related Persons Name: ARON FELTON Address: [place] [address]
--- OUTSIDE RECORDS SUMMARY | 2023-04-13 23:34 | XMS_ITS | Continuity of Care Document ---
Author Name Unknown Organization [facility] Plastic [facility] jazmyn Address [address] [place] [address] [address] [place] [address]- Care Team Providers Care Soft Top Installer Name Role Phone Rudy POWELL, Monica Primary Care Physician [phone] [place] [facility] [place](s): 08/08/21 - 09/07/21 [facility] [address] [place], [place] [address] Allergies, Adverse Reactions, Alerts Substance Reaction Severity [...] 1 each, 1 Refills, Maintenance, 03/12/17 17:22:12, [place], 1 sprays Nares, Both Daily in AM [...]
--- OUTSIDE RECORDS SUMMARY | 2023-04-13 23:34 | XMS_ITS | Continuity of Care Document ---
Author Name Unknown Organization [facility] Plastic [facility] jazmyn Address [address] [place] [address] [address] [place] [address]- Care Team Providers Care Climbing Guide Name Role Phone Monica Grant MD Primary Care Physician [place] [facility] [place] 07/11/21 - 07/18/21 [facility] [address] [place], [place] [address] Attending Physician: Caryn POWELL, Eduin Mata Referring [...] 1 each, 1 Refills, Maintenance, 03/12/17 17:22:12, [place], 1 sprays Nares, Both Daily in AM [...] oldest [Reference Range]: 1 Height 174.3 cm (07/11/21 1:08 PM) Weight 97.2 kg (07/11/21 1:08 PM) Body Mass Index [18.5-24.99] 31.99 *>HHI* (07/11/21 1:08 PM) Respiratory Rate [16-30 br/min] 15 br/mi n *L* (07/11/21 1:08 PM) Temperature [96.8-100.4 DegF] 98.0 DegF (07/11/21 1:08 PM) Temperature Route Temporal (07/11/21 1:08 PM) Weight Obtained Via Standing scale (07/11/21 1:08 PM) Social History Social History Type Response Smoking Status Former smoker, quit more than 30 days ago entered on: 07/14/18 Sex Female
--- OUTSIDE RECORDS SUMMARY | 2023-04-13 23:34 | XMS_ITS | Continuity of Care Document ---
Author Name Unknown Organization [facility] Plastic [facility] jazmyn Address [address] [place] [address] [address] [place] [address]- Care Team Providers Care Property Supervisor Name Role Phone Monica Grant MD Primary Care Physician [phone] [place] [facility] [place](s): 06/19/21 - 09/10/21 [facility]astic [address] [place], [place] [address] Attending Physician: Uriel TERRY, Bernice Robertson Referring [...] 1 each, 1 Refills, Maintenance, 03/12/17 17:22:12, [place], 1 sprays Nares, Both Daily in AM [...]
--- OUTSIDE RECORDS SUMMARY | 2023-04-13 23:34 | XMS_ITS | Continuity of Care Document ---
Author Name Unknown Organization [facility] Stefan jazmyn Address [address] [place] [address] [address] [place] [address]- Care Team Providers Care Nuclear Scientist Name Role Phone Rudy POWELL, Monica Primary Care Physician Encounter [facility] Date(s): 07/25/21 - 11/22/21 [facility] [address] [place], [place] [address] Attending Physician: Caryn POWELL, Eduin Mata [...] 1 each, 1 Refills, Maintenance, 03/12/17 17:22:12, [place], 1 sprays Nares, Both Daily in AM [...]
--- OUTSIDE RECORDS SUMMARY | 2023-04-13 23:34 | XMS_ITS | Continuity of Care Document ---
Author Name Unknown Organization [facility] Plastic [facility] jazmyn Address [address] [place] [address] [address] [place] [address]- Care Team Providers Care Curator Name Role Phone Monica Grant MD Primary Care Physician En[place] [facility] [place] Date(s): 06/19/21 - 10/09/21 [facility] [address] [place], [place] [address] Attending Physician: Uriel TERRY, Bernice Robertson [...] 1 each, 1 Refills, Maintenance, 03/12/17 17:22:12, [place], 1 sprays Nares, Both Daily in AM [...]
--- OUTSIDE RECORDS SUMMARY | 2023-04-13 23:34 | XMS_ITS | Continuity of Care Document ---
Author Name Unknown Organization [facility] Address [address] [place] [address]- Care Team Providers Care Keg Raiser Name Role Phone Monica Grant MD Primary Care Physician [phone] Encounter [facility] [place] Date(s): 01/10/20 - 08/07/21 [facility] [address] [place] [address] Discharge Disposition: A-D/C Home Attending Physician: Janey [...] 1 each, 1 Refills, Maintenance, 03/12/17 17:22:12, [place], 1 sprays Nares, Both Daily in AM [...]
--- OUTSIDE RECORDS SUMMARY | 2023-04-13 23:34 | XMS_ITS | Continuity of Care Document ---
Author Name Unknown Organization [facility] ter Address [address] [place] [address]- Care Team Providers Care Blog Writer Name Role Phone Monica Grant MD Primary Care Physician En[place] [facility] [place] Date(s): 01/27/23 - 03/17/[address] [address] Attending Physician: Janey Sepulveda MD Admitting Physician: Janey Sepulveda MD Referring Physician: Janey Sepulveda MD Allergies, Adverse Reactions, Alerts No Known [...] 1 each, 1 Refills, Maintenance, 03/12/17 17:22:12, [place], 1 sprays Nares, Both Daily in AM [...] Care Team Personnel Name: Arline Gomez Position: [facility] Onco RN Member Role: Primary Care Nurse Name: Sima Sanchez RN Position: [facility] Onco RN Member Role: Primary Care Nurse Name: Yaneli Portillo Position: [facility] AMB Nurse Member Role: Primary Care Nurse Name: Janey Sepulveda MD Position: [facility] Physician - Oncology Med Service: Hematology & Oncology Member Role: Referring Physician Address: Address: [address] [place] [address] for Cancer [facility] [place] [address]- Care Team Related Persons Name: ARON FELTON Address: [place] [address]
--- OUTSIDE RECORDS SUMMARY | 2023-04-13 23:35 | XMS_ITS | Continuity of Care Document ---
Author Name Unknown Organization [facility] Address [address] [place] [address]- Care Team Providers Care Sports Athletic Trainer Name Role Phone Rudy POWELL, Monica Primary Care Physician En[facility] [place] Date(s): 03/19/20 - 04/18/20 [facility] [address] [place] [address] [facility] Allergies, Adverse Reactions, Alerts Substance Reaction Severity [...] 1 each, 1 Refills, Maintenance, 03/12/17 17:22:12, [place], 1 sprays Nares, Both Daily in AM [...]
--- OUTSIDE RECORDS SUMMARY | 2023-04-13 23:35 | XMS_ITS | Continuity of Care Document ---
Author Name Unknown Organization [facility] Plastic Stefan jazmyn Address [address] [place] [address] [address] [place] [address]- Care Team Providers Care Photoengraving Proofer Apprentice Name Role Phone Monica Grant MD Primary Care Physician En[place] [facility] [place] Date(s): 07/19/21 - 11/16/21 [facility] [address] [place], [place] [address] Attending Physician: Eduin Rubin MD Admitting Physician: Eduin Rubin MD Referring Physician: Monica Grant MD Allergies, [...] 1 each, 1 Refills, Maintenance, 03/12/17 17:22:12, [place], 1 sprays Nares, Both Daily in AM [...]
--- OUTSIDE RECORDS SUMMARY | 2023-04-13 23:35 | XMS_ITS | Continuity of Care Document ---
Author Name Unknown Organization [facility] Address [address] [facility] [place] [address]- Care Team Providers Care Occasional Babysitter Name Role Phone Rudy POWELL, Monica Primary Care Physician En[place] [facility] [place] Date(s): 03/25/21 - 04/24/21 [facility] [address] [facility] [place] [address]- Allergies, Adverse Reactions, Alerts Substance Reaction Severity [...] 1 each, 1 Refills, Maintenance, 03/12/17 17:22:12, [place], 1 sprays Nares, Both Daily in AM [...]
--- OUTSIDE RECORDS SUMMARY | 2023-04-13 23:35 | XMS_ITS | Continuity of Care Document ---
Author Name Unknown Organization [facility] ancer Care Address [address] [place] [address]- Care Team Providers Care Overhead Crane Truck Loader Name Role Phone Monica Grant MD Primary Care Physician [place] [facility] [place](s): 01/19/22 - 02/18/22 [facility] Care [address] [place] [address] Allergies, Adverse Reactions, Alerts No Known Allergies [...] 1 each, 1 Refills, Maintenance, 03/12/17 17:22:12, [place], 1 sprays Nares, Both Daily in AM [...]
--- OUTSIDE RECORDS SUMMARY | 2023-04-13 23:35 | XMS_ITS | Continuity of Care Document ---
Author Name Unknown Organization [facility] Plastic [facility] jazmyn Address [address] [place] [address] [address] [place] [address]- Care Team Providers Care Pearl Hand Name Role Phone Monica Grant MD Primary Care Physician [phone] [place] [facility] [place]): [place]21 - 10/02/21 [facility] [address] [place], [place] [address] Attending Physician: Uriel TERRY, Bernice [...] 1 each, 1 Refills, Maintenance, 03/12/17 17:22:12, [place], 1 sprays Nares, Both Daily in AM [...]
--- OUTSIDE RECORDS SUMMARY | 2023-04-13 23:35 | XMS_ITS | Continuity of Care Document ---
Author Name Unknown Organization [facility] ancer Care Address [address] [place] [address]- Care Team Providers Care Sociology Teacher Name Role Phone Monica Grant MD Primary Care Physician En[place] [facility] [place] Date(s): 01/22/22 - 02/21/22 [facility] Care [address] [place] [address] Allergies, Adverse Reactions, Alerts No Known [...] 1 each, 1 Refills, Maintenance, 03/12/17 17:22:12, [place], 1 sprays Nares, Both Daily in AM [...]
--- OUTSIDE RECORDS SUMMARY | 2023-04-13 23:35 | XMS_ITS | Continuity of Care Document ---
Author Name Unknown Organization [facility] Address [address] [place] [address]- Care Team Providers Care Filing Or Registry Clerk Name Role Phone Monica Grant MD Primary Care Physician [phone] [id number] Date(s): 07/12/19 - 09/19/19 [facility] [address] [place] [address]- [facility] Discharge Disposition: A-D/C Home Attending Physician: Janey [...] 1 each, 1 Refills, Maintenance, 03/12/17 17:22:12, [place], 1 sprays Nares, Both Daily in AM [...] oldest [Reference Range]: 1 Height 174.3 cm (07/20/19 1:47 PM) Weight 98.6 kg (07/20/19 1:47 PM) Pulse Rate [55-90 bpm] 60 bpm (07/20/19 1:47 PM) Body Mass Index [18.5-24.99] 32.46 *>HHI* (07/20/19 1:47 PM) Blood Pressure [90-138/55-84 mm Hg] 121/ 52mm Hg (07/20/19 1:47 PM) Temperature [96.8-100.4 DegF] 98.4 DegF (07/20/19 1:47 PM) Blood pressure sites Arm, right (07/20/19 1:47 PM) Temperature Route Temporal (07/20/19 1:47 PM) Dry Weight 98.6 kg (07/20/19 1:47 PM) Weight Obtained Via Standing scale (07/20/19 1:47 PM) Dry Weight Obtained Via Standing scale (07/20/19 1:47 PM) Social History Social History Type Response Smoking Status Former smoker, quit more than 30 days ago entered on: 07/14/18 Sex
--- OUTSIDE RECORDS SUMMARY | 2023-04-13 23:35 | XMS_ITS | Continuity of Care Document ---
Author Name Unknown Organization [facility] Address [address] [facility] [place] [address]- Care Team Providers Care Supervisor Shipping Room Name Role Phone Monica Grant MD Primary Care Physician [phone] En[facility] [place] Date(s): 07/04/21 - 08/03/21 [facility] [address] [facility] [address]- Attending Physician: Sugey Wade Admitting Physician: Admtr ArGregory Referring Physician: Admtr, Ar8 Allergies, Adverse Reactions, [...] 1 each, 1 Refills, Maintenance, 03/12/17 17:22:12, [place], 1 sprays Nares, Both Daily in AM [...]
--- OUTSIDE RECORDS SUMMARY | 2023-04-13 23:35 | XMS_ITS | Continuity of Care Document ---
Author Name Unknown Organization [facility] Address [address] [place] [address]- Care Team Providers Care Counter Hop Name Role Phone Rudy POWELL, Monica Primary Care Physician [phone] [place] [facility] [place](s): 03/13/21 - 03/20/21 [facility] [address] [place] [address]- Attending Physician: Cat Diana NP Referring Physician: Monica Grant MD Allergies, Adverse [...] 1 each, 1 Refills, Maintenance, 03/12/17 17:22:12, [place], 1 sprays Nares, Both Daily in [...] oldest [Reference Range]: 1 Height 174.3 cm (03/13/21 9:54 AM) Weight 100.9 kg (03/13/21 9:54 AM) Pulse Rate [55-90 bpm] 77 bpm (03/13/21 9:54 AM) Body Mass Index [18.5-24.99] 33.21 *>HHI* (03/13/21 9:54 AM) Blood Pressure [90-138/55-84 mm Hg] 117/ 68mm Hg (03/13/21 9:54 AM) Temperature [96.8-100.4 DegF] 96.6 DegF *L* (03/13/21 9:54 AM) Blood pressure sites Arm, right (03/13/21 9:54 AM) Temperature Route Temporal (03/13/21 9:54 AM) Social History Social History Type Response Smoking Status Former smoker, quit more than 30 days ago entered on: 07/14/18 Sex Female
--- OUTSIDE RECORDS SUMMARY | 2023-04-13 23:35 | XMS_ITS | Continuity of Care Document ---
Author Name Unknown Organization [facility] Address [address] [place] [address]- Care Team Providers Care Lye Boiler Name Role Phone Monica Grant MD Primary Care Physician [place] [facility] [place] Date(s): 10/29/21 - 03/24/22 [facility] [address] [place] [address]- Discharge Disposition: A-D/C Home Attending Physician: Janey [...] 1 each, 1 Refills, Maintenance, 03/12/17 17:22:12, [place], 1 sprays Nares, Both Daily in AM Start Date: 03/12/17 Status: Ordered Flovent HFA Inhalation, 2 times a day, 0 Refills, Maintenance, 06/14/14 12:45:19 Start Date: 06/14/14 Status: Ordered Prozac Capsule By Mouth, Daily, Maintenance, 10/25/15 14:25:35 Start Date: 2/19/16 Status: Ordered Problem List Condition Effective Dates [...] oldest [Reference Range]: 1 Height 174.3 cm (01/22/22 1:09 PM) Weight 101.8 kg (01/22/22 1:09 PM) Pulse Rate [55-90 bpm] 67 bpm (01/22/22 1:09 PM) Body Mass Index [18.5-24.99] 33.51 *>HHI* (01/22/22 1:09 PM) Blood Pressure [90-138/55-84 mm Hg] 123/ 70mm Hg (01/22/22 1:09 PM) Temperature [96.8-100.4 DegF] 97.7 DegF (01/22/22 1:09 PM) Blood pressure sites Arm, right (01/22/22 1:09 PM) Temperature Route Temporal (01/22/22 1:09 PM) Dry Weight 101.8 kg (01/22/22 1:09 PM) Weight Obtained Via Standing scale (01/22/22 1:09 PM) Dry Weight Obtained Via Standing scale (01/22/22 1:09 PM) Social History Social History Type Response Smoking Status Former smoker, quit more than 30 days ago entered on: 07/14/18 Sex Female
--- OUTSIDE RECORDS SUMMARY | 2023-04-13 23:35 | XMS_ITS | Continuity of Care Document ---
Author Name Unknown Organization [facility] jazmyn Address [address] [place] [address] [address] [place] [address]- Care Team Providers Care Pct Name Role Phone Monica Grant MD Primary Care Physician [place] [facility] [place] 06[place]19[place]21 - 09/18/21 [facility] [address] [place], [place] [address] Attending Physician: Uriel TERRY, Bernice Robertson [...] 1 each, 1 Refills, Maintenance, 03/12/17 17:22:12, [place], 1 sprays Nares, Both Daily in AM [...]
--- OUTSIDE RECORDS SUMMARY | 2023-04-13 23:35 | XMS_ITS | Continuity of Care Document ---
Author Name Unknown Organization [facility] Address [address] [place] [address]- Care Team Providers Care Publication Distributor Name Role Phone Monica Grant MD Primary Care Physician [place] [facility] [place] Date(s): 01/22/22 - 02/21/22 [facility] [address] [place] [id number] All[facility]ies, Adverse Reactions, Alerts No Known Allergies [...] 1 each, 1 Refills, Maintenance, 03/12/17 17:22:12, [place], 1 sprays Nares, Both Daily in AM [...]
--- OUTSIDE RECORDS SUMMARY | 2023-04-13 23:35 | XMS_ITS | Continuity of Care Document ---
Author Name Unknown Organization [facility] ter Address [address] [place] [address]- Care Team Providers Care Rod Straightener Name Role Phone Rudy POWELL, Monica Primary Care Physician Encounter [facility] [place] Date(s): 03/16/22 - 04/22/[address] [address] Attending Physician: Janey Sepulveda MD Admitting Physician: [...] 1 each, 1 Refills, Maintenance, 03/12/17 17:22:12, [place], 1 sprays Nares, Both Daily in AM [...]
--- OUTSIDE RECORDS SUMMARY | 2023-04-13 23:35 | XMS_ITS | Continuity of Care Document ---
Author Name Unknown Organization [facility] Stefan jazmyn Address [address] [place] [address] [address] [place] [address]- Care Team Providers Care Brick Dropper Name Role Phone Rudy POWELL, Monica Primary Care Physician [phone] En[place] [facility] [place] Date(s[place] 07/17/21 - 11/08/21 [facility] [address] [place], [place] [address] Attending Physician: Caryn POWELL, Eduin [...] 1 each, 1 Refills, Maintenance, 03/12/17 17:22:12, [place], 1 sprays Nares, Both Daily in AM [...]
--- OUTSIDE RECORDS SUMMARY | 2023-04-13 23:35 | XMS_ITS | Continuity of Care Document ---
Author Name Unknown Organization [facility] Address [address] [facility] [place] [address]- Care Team Providers Care Wood Products Manufacturer Name Role Phone Monica Grant MD Primary Care Physician Encounter [facility] [place] [facility] [place] [id number] Date(s): 07/09/21 - 09/13/21 [facility] [address] [facility] [place] [address]- Attending Physician: David Pierre DO Admitting Physician: [...] 1 each, 1 Refills, Maintenance, 03/12/17 17:22:12, [place], 1 sprays Nares, Both Daily in AM [...]
--- OUTSIDE RECORDS SUMMARY | 2023-04-13 23:35 | XMS_ITS | Continuity of Care Document ---
Author Name Unknown Organization [facility] jazmyn Address [address] [place] [address] [address] [place] [address]- Care Team Providers Care Support Services Coordinator Name Role Phone Monica Grant MD Primary Care Physician [phone] [place] [facility] [place](s[place] 08/01/21 - 11/29/21 [facility] [address] [place], [place] [address] Attending Physician: Caryn POWELL, Eduin [...] 1 each, 1 Refills, Maintenance, 03/12/17 17:22:12, [place], 1 sprays Nares, Both Daily in AM [...]
--- OUTSIDE RECORDS SUMMARY | 2023-04-13 23:35 | XMS_ITS | Continuity of Care Document ---
Author Name Unknown Organization [facility] Address [address] [place] [address]- Care Team Providers Care Financial Systems Director Name Role Phone Monica Grant MD Primary Care Physician [place] [facility] [place] 05/16/20 - 06/15/20 [facility] [address] [place] [address]- [facility] Attending Physician: Sugey Wade Admitting Physician: Sugey [...] 1 each, 1 Refills, Maintenance, 03/12/17 17:22:12, [place], 1 sprays Nares, Both Daily in AM [...]
--- OUTSIDE RECORDS SUMMARY | 2023-04-13 23:35 | XMS_ITS | Continuity of Care Document ---
Author Name Unknown Organization [facility] Address [address] [place] [address]- Care Team Providers Care Student Teaching Coordinator Name Role Phone Rudy POWELL, Monica Primary Care Physician [place] [facility] [place]/20/23 - 02/19/23 [facility] [address] [place], [place] [address] Allergies, Adverse Reactions, Alerts No Known [...] 1 each, 1 Refills, Maintenance, 03/12/17 17:22:12, [place], 1 sprays Nares, Both Daily in AM [...] Care Team Personnel Name: Arline Gomez Position: [facility] Onco RN Member Role: Primary Care Nurse Name: Sima Sanchez RN Position: [facility] Onco RN Member Role: Primary Care Nurse Name: Yaneli Portillo Position: [facility] AMB Nurse Member Role: Primary Care Nurse Care Team Related Persons Name: ARON FELTON Address: [place] [address]
--- OUTSIDE RECORDS SUMMARY | 2023-04-13 23:35 | XMS_ITS | Continuity of Care Document ---
Author Name Unknown Organization [facility] Address [address] [facility] [place] [address]- Care Team Providers Care Fitter Placer Name Role Phone Monica Grant MD Primary Care Physician [place] [facility] [place]): 03/02/22 - 04/01/22 [facility] [address] [facility] [place] [address]- Attending Physician: Sugey Wade Admitting Physician: AdmtrSugey Referring Physician: Admtr ArGregory Allergies, Adverse Reactions, [...] 1 each, 1 Refills, Maintenance, 03/12/17 17:22:12, [place], 1 sprays Nares, Both Daily in AM [...]
[2023-04-14] MEDS: ondansetron HCL 4 MG/2 ML VIAL IVPUSH (00:09)
[2023-04-14] MEDS: Ketorolac Tromethamine 15 MG/ML VIAL IVPUSH (00:09)
[2023-04-14] MEDS: Famotidine/PF 20 MG/2 ML VIAL IVPUSH (00:09)
[2023-04-14] MEDS: Lactated Ringers 1,000 ML 999 ML IV (00:12)
[2023-04-14] MEDS: iohexoL 350 MG/ML 100 ML INFUS..BTL 85 ML IV (00:37)
[2023-04-14 01:37] LABS: Monotest Negative (Negative)
== END 2023-04-14 01:27 | disposition home or self-care (01) ==
PROVIDERS: Physician Assistant; Emergency Provider Emergency Medicine
DX: R16.2 Hepatomegaly with splenomegaly, not elsewhere classified (principal); R50.9 Fever, unspecified; R11.2 Nausea with vomiting, unspecified; R59.1 Generalized enlarged lymph nodes; Z20.822 Contact with and (suspected) exposure to COVID-19; Z20.828 Contact with and (suspected) exposure to other viral communicable diseases; Z79.899 Other long term (current) drug therapy
CPT/HCPCS: 36415; 74177; 80048; 80076; 81001; 81025; 83735; 85025; 86308; 87502; 87635; 96361; 96374; 96375; 99283; 99284; J1885; J2405; Q9967

== ENCOUNTER 2023-08-18 16:46 | Emergency (ER) | payer OTHER, SELFPAY ==
--- NOTE | ~2023-08-18 | XR_ITS ---
EXAMINATION: XR CHEST CLINICAL INFORMATION: Cough COMPARISON: None available. TECHNIQUE: 2 views of the chest were obtained. FINDINGS: No significant abnormality is noted involving the heart, lungs, mediastinum, bony thorax or soft tissues. XR/XR chest 2V IMPRESSION: Unremarkable examination.
--- NOTE | 2023-08-18 16:53 | ED.URI ---
HPI - URI/Sore Throat General Chief Complaint: Upper Respiratory Symptoms Stated Complaint: cough, clogged ears Time Seen by Provider: 08/18/23 17:23 Source: patient Mode of arrival: ambulatory Limitations: no limitations History of Present Illness HPI Narrative: Patient is a 33 year old assigned female at with a history of asthma presenting to the emergency department today with a cough. Patient states that over the last 2 weeks she has had a cough. Patient denies any dizziness, lightheadedness, abdominal pain, nausea, vomiting, fever, chills, blurry vision, double vision, loss of vision, chest pain, difficulty breathing, shortness of breath, back pain, night sweats, pain with urination, increased urinary frequency, increased urinary urgency, blood in her urine or stool, syncope or a near syncopal episode, recent trauma or falls, bowel incontinence, bladder incontinence, bowel retention, bladder retention, or any other complaints at this time. MD elicited complaint: cough Onset (ago): week(s) (2) Severity: mild Exacerbating factors: nothing Relieving factors: nothing Associated symptoms: cough Treatments prior to arrival: none Related Data Previous Rx's Medication Instructions Recorded ondansetron 4 mg disintegrating 4 mg PO Q8H PRN nausea and 04/14/23 tablet vomiting #20 tabs albuterol sulfate 90 mcg/actuation 1 inh inhalation QID PRN 08/18/23 aerosol inhaler bronchospasm #8.5 grams benzonatate 100 mg capsule 100 mg PO BID PRN cough 7 days #14 08/18/23 caps fluticasone propionate 110 1 puff inhalation BID #12 grams 08/18/23 mcg/actuation HFA aerosol inhaler (Flovent HFA) prednisone 20 mg tablet 20 mg PO DAILY 7 days #7 tabs 08/18/23 Allergies Allergy/AdvReac Type Severity Reaction Status Date / Time No Known Allergies Allergy Verified 08/18/23 16:54 Review of Systems Constitutional: Constitutional: Reports no additional constitutional complaints, Denies chills, Denies fever(s) and Denies night sweats Eyes: Eyes: Reports no additional eye complaints, Denies blurry vision, Denies change in vision, Denies diplopia, Denies eye discharge, Denies loss of vision and Denies eye pain ENT: Denies dizziness Cardiovascular: Cardiovascular: Reports no additional cardiovascular complaints, Denies chest pain, Denies lightheadedness, Denies Loss of Consciousness and Denies dyspnea Respiratory: Respiratory: Reports no additional respiratory complaints, Reports cough, Denies dyspnea and Reports wheezing Gastrointestinal: Gastrointestinal: Reports no additional gastrointestinal complaints, Denies abdominal pain, Denies melena, Denies hematochezia, Denies change in bowel habits and Denies change in stool character Genitourinary: Genitourinary: Denies hematuria, Denies urinary frequency, Denies dysuria, Denies urinary incontinence, Denies urinary hesitancy and Denies urinary urgency Musculoskeletal: Musculoskeletal: Reports no additional musculoskeletal complaints, Denies numbness and Denies tingling Neurologic: Denies dizziness, Denies loss of vision, Denies numbness and Denies tingling Psychiatric: Psychiatric: Reports no additional psychiatric complaints Endocrine: Endocrine: Reports no additional endocrine complaints Hematologic/Lymphatic: Hematologic/Lymphatic: Reports no additional hematologic/lymphatic complaints Allergic/Immunologic: Allergic/Immunologic: Reports no additional allergic/immunologic complaints and Reports wheezing PMFSH Past Medical History Attestation statement: The following information was validated with the patient. Source: old records reviewed and nursing notes reviewed Medical History No pertinent past medical history Social History Social History Patient Tobacco Use Status: Never used Tobacco Smoked in Last 30 Days: Yes Substance Use Type: Marijuana Substance Use Frequency: Daily Advance Directives: No Advance Directives Information Provided: No Physical Exam Vital Signs: Vital Signs: Last Vital Signs Temp 98 F 08/18/23 18:46 Pulse 87 08/18/23 18:46 Resp 16 08/18/23 18:46 BP 141/85 H 08/18/23 18:46 Pulse Ox 98 08/18/23 18:46 O2 Del Method Room Air 08/18/23 18:46 BMI result Body Mass Index 31.8 Const: General: cooperative, no acute distress, alert and awake Nutritional Appearance: well nourished Orientation/consciousness: patient oriented x3 Limitations: no limitations HEENT: Head: Yes normal to inspection and Yes atraumatic Ears: hearing grossly normal bilaterally and external ears normal General nose exam: Normal external nose present, no nasal discharge noted and no epistaxis Face and sinus: Yes normal facial exam, No abrasion and No laceration Mouth: Normal oral and palatal mucosa present, no drooling and no muffled voice Eyes: General: appearance normal, both eyes and all related structures Periorbital: periorbital findings normal Eyelids: Yes eyelids normal Conjunctivae: conjunctivae normal Pupils: Equal, round and reactive pupils present EOM: EOMs intact bilaterally Neck: Neck: Yes normal visual inspection, Yes full ROM and Yes no lymphadenopathy Chest: Chest palpation & inspection: normal inspection of the chest Resp: Effort & Inspection: normal respiratory effort and able to speak in complete sentences Auscultation: wheezes scattered wheezes GI: Inspection: Yes normal to inspection Neuro: General: patient oriented x3 and moves all extremities Cranial nerves: Yes Equal, round and reactive pupils present Cognition (Neuro): normal cognition Motor exam (neuro): 5/5 motor strength present throughout Sensory Exam: Normal double simultaneous stimulation for sensation Coordination: [id number] test normal Extrem: General: Yes normal to inspection, Yes full ROM and Yes capillary refill normal Psych: Appearance: grossly normal Mental Status: mental status grossly normal Affect: normal affect Attitude: cooperative Thought process: Normal thought process present Thought content: Normal thought content present Insight: Good insight present (Psych) Course Course Course Narrative: RME: 33yo F w/no sig PMHx c/o productive cough, wheezing, congestion x2 weeks w/b/l clogged ears (worse on L). taking OTC meds w/o relief. Coarse cough noted. expiratory wheeze appreciated viral testing & CXR ordered Full HPI, ROS and PE to be performed by primary ED provider. Medications Administered Discontinued Medications Generic Name Dose Route Start Last Admin Trade Name Sebastian PRN Reason Stop Dose Admin Albuterol Sulfate 4 puff 08/18/23 18:00 08/18/23 18:05 Albuterol Sulfate 90 Mcg 8 Gm Inhaler INHALE 08/18/23 18:01 4 puff ONCE ONE Administration Albuterol Sulfate 4 puff 08/18/23 18:02 08/18/23 18:06 Albuterol Sulfate 90 Mcg 8 Gm Inhaler INHALE 08/18/23 18:03 Not Given ONCE ONE Benzonatate 100 mg 08/18/23 17:27 08/18/23 18:03 Benzonatate 100 Mg Capsule PO 08/18/23 17:28 100 mg ONCE ONE Administration Methylprednisolone Sodium Succinate 60 mg 08/18/23 17:23 08/18/23 18:04 Methylprednisolone Sod Succ 125 Mg/2 Ml Vial IM 08/18/23 17:24 60 mg ONCE ONE Administration Medical Decision Making Medical Decision Making [facility] Narrative: Patient is a 33 year old assigned female at with a history of asthma presenting to the emergency department today with a cough. Patient's physical exam was as noted in the physical exam portion of this note. Patient's COVID-19 and influenza Patient's chest x-ray showed no acute process. I explained my physical exam findings as well as all test results to the patient. I answered all questions asked by the patient. I stressed the importance of the patient taking her medication as prescribed. I stressed the importance of the patient following up with her primary care provider. I stressed the importance of the patient returning to the emergency department immediately if her symptoms were to worsen or if she were to develop any dizziness, shortness of breath, difficulty breathing, chest pain, blurry vision, loss of vision, nausea, vomiting, abdominal pain, fever, chills, back pain, or any other complaints. Patient verbalized agreement and understanding with this treatment plan and discharge. Differential Diagnosis Differential Diagnoses: The differential diagnosis associated with the presentation includes Asthma exacerbation COVID-19 Influenza Admission/Observation Consideration of admission/observation: Escalation of care including admission/observation considered Patient would have been admitted to the hospital had her work up had any findings where hospital admission was appropriate and her clinical presentation warranted hospital admission. Lab Data MDM Lab Attestation statement: I reviewed the patient's lab results. My interpretation of these studies and their corresponding values is that they are grossly normal. Labs: Lab Results 08/18/23 Range/Units 17:12 COVID-19 (LADARIUS) Negative (Negative) COVID-19 Clin Com See Note Influenza Type A (GLEN) Negative (Negative) Influenza Type B (GLEN) Negative (Negative) Influenza A & B Note See Note Independent Interpretation I performed an independent interpretation of an: Plain X-Ray Interpretation: My interpretation is in agreement with the radiologist's impression of this imaging study. EXAMINATION: XR CHEST CLINICAL INFORMATION: Cough COMPARISON: None available. TECHNIQUE: 2 views of the chest were obtained. FINDINGS: No significant abnormality is noted involving the heart, lungs, mediastinum, bony thorax or soft tissues. XR/XR chest 2V IMPRESSION: Unremarkable examination. Dictated By: Poonam Sandoval MD Signed By: Electronically signed by Poonam Sandoval MD 08/18/23 5202 Radiology Impression Discussion of test interpretation with radiology: I have reviewed the radiologist's reading. Discharge Plan Discharge Clinical Impression: Upper respiratory infection, Asthma Patient Disposition: Home, Self-Care Instructions: Asthma (DC), Upper Respiratory Infection (DC) Additional Instructions: Follow up with your primary care provider. Return to the emergency department immediately if your symptoms worsen or if you develop any dizziness, shortness of breath, difficulty breathing, chest pain, blurry vision, loss of vision, nausea, vomiting, abdominal pain, fever, chills, back pain, or any other complaints. Prescriptions: New prednisone 20 mg tablet 20 mg PO DAILY 7 Days Qty: 7 0RF fluticasone propionate [Flovent HFA] 110 mcg/actuation HFA aerosol inhaler 1 puff inhalation BID Qty: 12 0RF albuterol sulfate 90 mcg/actuation HFA aerosol inhaler 1 inh inhalation QID PRN (Reason: bronchospasm) Qty: 8.5 0RF benzonatate 100 mg capsule 100 mg PO BID PRN (Reason: cough) 7 Days Qty: 14 0RF No Action ondansetron 4 mg tablet,disintegrating 4 mg PO Q8H PRN (Reason: nausea and vomiting) Qty: 20 0RF [place] [facility] [place] (Call to establish and follow up with a primary care provider. If you already have a primary care provider, please follow up with them.) [facility] [place] [facility] [place] (Call to establish and follow up with a primary care provider. If you already have a primary care provider, please follow up with them.) [facility] [place] [facility] [place] Group[place] (Call to establish and follow up with a primary care provider. If you already have a primary care provider, please follow up with them.) Interventions: ED Discharge Assessment Last Done: 08/18/23 18:57 Discharge Date/Time: 08/18/23 18:55 Print Language: Irish
[2023-08-18 16:54] VITALS: BP 156/72; PULSE 87; RESP 18; TEMP 36.6; O2SAT 99; BMI 31.8
[2023-08-18 17:43] LABS: COVID-19 Test Negative (Negative); IDNOW Serial# 08D9AD1C
[2023-08-18 17:52] LABS: IDNOW Serial# 9DB6401D; Influenza A Negative (Negative); Influenza B2 Negative (Negative)
[2023-08-18] MEDS: Benzonatate 100 MG CAPSULE PO (18:03)
[2023-08-18] MEDS: methylPREDNISolone Sod Succ 125 MG/2 ML VIAL 60 MG IM (18:04)
[2023-08-18] MEDS: Albuterol Sulfate 90 MCG 8 GM INHALER 4 PUFF INHALE (18:05)
[2023-08-18 18:08] VITALS: PULSE 74; RESP 18; O2SAT 98
[2023-08-18 18:46] VITALS: BP 141/85; PULSE 87; RESP 16; TEMP 36.6; O2SAT 98
== END 2023-08-18 18:55 | disposition home or self-care (01) ==
PROVIDERS: Physician Assistant; Emergency Provider Internal Medicine
DX: J06.9 Acute upper respiratory infection, unspecified (principal); J45.909 Unspecified asthma, uncomplicated; Z11.52 Encounter for screening for COVID-19
CPT/HCPCS: 71046; 87502; 87635; 94640; 94664; 96372; 99284; 99285; J2930